=== PATIENT | male | born 1975 | race Hispanic/Latino ===

== ENCOUNTER 2016-03-22 15:44 | Emergency (ER) | payer SELFPAY ==
[~2016-03-22] VITALS: Ht 162.6 cm; Wt 74.6 kg
[2016-03-22 15:54] VITALS: BP 139/83; PULSE 111; RESP 20; O2SAT 99
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
[2016-03-22] MEDS ORDERED: cefTRIAXone Inj 250 MG, Lidocaine PF 1% Inj 0.9 ML in Syringe 1 EACH IM ONE (16:25)
[2016-03-22 17:27] LABS: APPEARANCE,URINE CLEAR (CLEAR,HAZY); COLOR,URINE YELLOW (YELLOW); OCCULT BLOOD,URINE TRACE (NEGATIVE); PH,URINE 8.5 (5.0-8.0); UROBILINOGEN,URINE NORMAL (NORMAL)
[2016-03-22 18:03] LABS: BASOPHILS % (AUTO) 0.2 % (0-3); EOSINOPHILS % (AUTO) 0.2 % (0-5); MONOCYTES % (AUTO) 8.1 % (4-12); Mean Corpuscular Hemoglobin 28.5 pg (27.0-35.0); Mean Corpuscular Volume 82.8 fL (81-100); NEUTROPHILS % (AUTO) 80.8 % (40-74); Platelet Count 194 bil/L (150-400)
[2016-03-22 18:41] VITALS: BP 124/76; PULSE 105; RESP 16; O2SAT 98
== END 2016-03-22 19:41 | disposition home or self-care (01) ==
LOC: SED 15:44
DX: J02.0 Streptococcal pharyngitis (principal); A64 Unspecified sexually transmitted disease; R10.84 Generalized abdominal pain; N52.9 Male erectile dysfunction, unspecified; Z86.19 Personal history of other infectious and parasitic diseases
CPT/HCPCS: 36415; 80053; 81000; 85025; 87081; 87147; 87491; 87591; 87880; 96372; 99284; J0696